=== PATIENT | male | born 1970 | race Hispanic/Latino ===

== ENCOUNTER 2020-03-14 08:37 | Inpatient (IN) | payer SELFPAY ==
[2020-03-14 09:30] LABS: #Lymphocytes 1.8 thou/uL (1.20-3.40); #Monocytes 0.9 thou/uL (0.11-0.59); #Neutrophils 6.3 thou/uL (1.40-6.50); %Basophils 0.4 % (0.0-1.0); %Eosinophils 0.3 % (0.0-10.0); %Lymphocytes 20.1 % (21.0-51.0); %Neutrophils 69.2 % (42.0-75.0); Hemoglobin 15.2 g/dL (14.0-18.0); Mean Corpuscular HGB CONC 33.5 g/dL (32.0-36.0); Mean Corpuscular Hemoglobin 30.4 pg (27.0-31.0); Mean Corpuscular Volume 90.9 fL (78.0-98.0); Mean Platelet Volume 9.1 fL (7.4-10.4); Platelet Count 329 thou/uL (130-400); RBC Distribution Width 11.4 % (11.5-14.5); Red Blood Cell (RBC) Count 4.99 mill/uL (4.70-6.10); White Blood Cell (WBC) Count 9.1 thou/uL (4.8-10.8)
[2020-03-14 09:51] LABS: ALT (SGPT) 20 U/L (8-55); AST (SGOT) 16 U/L (5-34); Albumin 4.6 g/dL (3.5-5.0); Alkaline Phosphatase 95 U/L (40-110); Anion Gap 16 mmol/L (10-20); BUN (Urea Nitrogen) 18 mg/dL (8.9-20.6); Bilirubin, Total 0.7 mg/dL (0.2-1.2); Calc. Creatinine Clearance 0 mL/min (70-130); Calcium 10.7 mg/dL (7.8-10.44); Carbon Dioxide 34 mmol/L (22-29); Chloride 85 mmol/L (98-107); Estimated GFR-MDRD 52; Globulin 3.4 g/dL (2.4-3.5); Potassium 3.8 mmol/L (3.5-5.1); Sodium 131 mmol/L (136-145)
[2020-03-14] MEDS ORDERED: Morphine 4 MG/ML VIAL ONE (09:55)
[2020-03-14] MEDS ORDERED: Ondansetron PF 4 MG/2 ML Vial ONE (09:55)
[2020-03-14] MEDS ORDERED: Piperacillin/Tazobactam 4.5 GM VIAL ONE (09:55)
[2020-03-14 09:59] LABS: Glucose 555 mg/dL (70-105)
[2020-03-14 10:32] LABS: Bilirubin Negative (Negative); Blood, Urine Negative (Negative); Clarity Clear (Clear); Glucose, Urine (Dipstick) Greater than 1000 mg/dL (Negative); Ketone, Urine 20 mg/dL (Negative); Leukocyte Negative Leu/uL (Negative); Nitrite Negative (Negative); Protein, Urine (Dipstick) Negative (Neg-Trace); Urobilinogen Normal mg/dL (Less than 2)
[2020-03-14 10:47] LABS: Base Excess-Venous 4.7 mmol/L (-2.0 to 3.0); Bicarbonate (HCO3v) 29.1 mmol/L (22.0-28.0); CO2 Tension (PvCO2) 41.5 mmHg (40.0-50.0); Calcium, Ionized 1.06 mmol/L (See Comments:); Chloride 94 mmol/L (98-107); Hemoglobin - Calc 14.5 g/dL (14.0-18.0); Potassium 3.4 mmol/L (3.5-5.1); Sodium 135 mmol/L (138-145); T. Carbon Dioxide 30.4 mmol/L (22.0-28.0); vO2 Saturation-calc 99.4 % (60.0-85.0)
--- NOTE | 2020-03-14 10:47 | RAD ---
EXAM: Single view of the chest HISTORY: Right-sided abdominal pain and vomiting. Dyspnea. COMPARISON: None FINDINGS: Single view of the chest shows a normal sized cardiomediastinal silhouette. There is no mirlande dence of consolidation, mass, or pleural effusion. The bones are unremarkable IMPRESSION: No evidence of acute cardiopulmonary disease
--- NOTE | 2020-03-14 10:55 | ULT ---
US Gallbladder RUQ: 03/14/2020 9:40 AM CLINICAL HISTORY: Abdominal pain. STUDY: Limited right upper quadrant ultrasound of abdomen. COMPARISON: None. FINDINGS: Liver: Size: Normal. Echogenicity: Normal. Contour: Smooth. Mass: None. Bile ducts: No intrahepatic or extrahepatic biliary dilatation. Common bile duct measures 7 mm. Gallbladder: Normal. Pancreas: Head, body, and tail appear normal. Right kidney: No pelvicalyceal dilatation. 1.7 cm right renal cyst. Right kidney measuring 10.1 cm in length. IMPRESSION: Right renal cyst
--- NOTE | 2020-03-14 12:02 | CT ---
CT ABDOMEN AND PELVIS WITH IV CONTRAST: HISTORY: Right-sided abdominal pain with nausea and vomiting. FINDINGS: The lung bases are clear. No calcified gallstones are seen. A few tiny low density lesions are seen i n the liver, too small to characterize. The spleen, pancreas, adrenal glands and left kidney are norm al. There is a 1.7 cm cortical cyst in the right kidney. No free air, free fluid or lymphadenopathy i s seen in the abdomen or pelvis. The small bowel loops are not abnormally dilated. A normal appearing appendix is noted. There is no evidence of aneurysmal dilatation of the abdominal aorta. There are d egenerative changes in the spine. The prostate is enlarged. There is mild colonic diverticulosis with out diverticulitis. A small hiatal hernia is present. IMPRESSION: No acute process. POS: MZA
[2020-03-14 12:22] LABS: Lactic Acid 1.4 mmol/L (0.5-2.2)
[2020-03-14] MEDS ORDERED: Insulin Regular 300 UNITS/3 ML VIAL IVP SCH (13:15)
[2020-03-14] MEDS ORDERED: Electrolyte Replacement Protoc 1 EACH EACH FS SCH ×2 (13:30→15:47)
[2020-03-14] MEDS ORDERED: Electrolyte Replacement Protocol FS PRN ×2 (13:30→16:00)
[2020-03-14] MEDS ORDERED: Iopamidol-370 76% 500 ML 1 ML ONE (13:35)
[2020-03-14] MEDS ORDERED: Dextrose 50% Abboject 50 ML SYRINGE SLOW IVP PRN (14:20)
[2020-03-14] MEDS ORDERED: HumaLOG 300 UNITS/3 ML VIAL SC PRN (14:20)
[2020-03-14] MEDS ORDERED: Dextrose 5% in Water 1,000 ML IV PRN (14:20)
[2020-03-14] MEDS ORDERED: Acetaminophen 650 MG Suppository PR PRN (14:26)
[2020-03-14] MEDS ORDERED: Acetaminophen 325 MG TAB PO PRN (14:26)
[2020-03-14] MEDS ORDERED: Ondansetron ODT 4 MG TAB PO PRN (14:26)
[2020-03-14] MEDS ORDERED: Senokot S 8.6-50 MG TAB PO PRN (14:26)
[2020-03-14] MEDS ORDERED: Calcium Carbonate 500 MG ChewTAB PO PRN (14:26)
[2020-03-14] MEDS ORDERED: Ondansetron PF 4 MG/2 ML Vial IVP PRN (14:26)
[2020-03-14 14:27] LABS: Anion Gap 13 mmol/L (10-20); BUN (Urea Nitrogen) 15 mg/dL (8.9-20.6); Calc. Creatinine Clearance 0 mL/min (70-130); Calcium 9.2 mg/dL (7.8-10.44); Carbon Dioxide 30 mmol/L (22-29); Chloride 96 mmol/L (98-107); Estimated GFR-MDRD 85; Glucose 354 mg/dL (70-105); Potassium 3.8 mmol/L (3.5-5.1); Sodium 135 mmol/L (136-145)
[2020-03-14] MEDS ORDERED: Potassium Chloride 40 MEQ in Sodium Chloride 0.9% 250 ML 250 ML IVPB SCH (15:15)
--- NOTE | 2020-03-14 15:24 | HP ---
PRIMARY CARE PHYSICIAN: None. CHIEF COMPLAINT: Abdominal pain. HISTORY OF PRESENT ILLNESS: The patient is a 49-year-old male with a past medical history significant for untreated type 2 diabetes, who presents to the ER for the above complaint. The patient reports having abdominal pain over the last week, which intensified last night. He reports that the abdominal pain was located in his right upper quadrant. He describes it as dull and aching in nature over the past week, then last night, worse in intensity with some associated nausea and vomiting. He denies any diarrhea. Denies any recent fever or chills. He does report some associated polyuria, polydipsia, and polyphagia. For these reasons, he came to the ER. In the ER, he was found to have a normal temperature, normal blood pressure , mildly tachycardic with a heart rate of 95, normal respirations, normal oxygen saturation with 10/10 pain. Right upper quadrant ultrasound was performed, which is negative for any acute process. CT of the abdomen was performed with no acute process. Glucose was 555. He had a gap of 16, lactic acid of 2.5, beta hydroxybutyrate of 0.75. The patient was given 2 L of normal saline and Zosyn. COVID test is negative. PAST MEDICAL HISTORY: Diabetes type 2, untreated. PAST SURGICAL HISTORY: None. SOCIAL HISTORY: The patient lives with his family in [place]. He does not work. He smokes about a quarter pack per day since he was a teenager. He drinks beer socially, approximately 6 beers per week. Denies any illicit drug use. FAMILY HISTORY: Noncontributory for diabetes. ALLERGIES: NO KNOWN DRUG ALLERGIES. HOME MEDICATIONS: None. REVIEW OF SYSTEMS: All review of systems are negative unless otherwise stated in the HPI. PHYSICAL EXAMINATION: VITAL SIGNS: Temperature 97.6, blood pressure 122/74, pulse 95, respirations 16 , saturation of oxygen is 99 on room air. No pain at this time. CONSTITUTIONAL: The patient is alert and oriented to person, place, and time. No acute distress. Nontoxic in appearance. HEAD: Atraumatic and normocephalic. EYES: Extraocular muscles intact. PERRLA. NECK: Full range of motion. No cervical spinous tenderness. No cervical adenopathy. No JVD. RESPIRATORY/CHEST: Respirations even and unlabored. Clear to auscultation. No rhonchi, wheezes, or rales. CARDIOVASCULAR: S1 and S2 appreciated. Regular rate and rhythm. No murmurs, rubs, or gallops. ABDOMEN: Abdomen is soft, nontender, nondistended. Active bowel sounds. No guarding. No rigidity. No rebound. Negative Rovsing sign. Negative Marcano sign. No abdominal bruit auscultated. BACK: Full range of motion. No central spinous tenderness. No CVA tenderness. EXTREMITIES: Upper extremities; full range of motion, normal strength, sensation intact. Palpable radial pulses. Lower extremities; full range of motion, normal strength, normal sensation. Palpable pedal pulses, no swelling. NEUROLOGIC: The patient is alert and oriented to person, place, and time. Follows commands. No focal motor deficits. Normal gait. PSYCHIATRIC: A and O x3. Normal affect. Denies any suicidal or homicidal ideation. LABS AND DIAGNOSTICS: Abdominal ultrasound negative for any acute abdominal process. CT of the abdomen and pelvis was negative for any acute process. Chest x-ray was negative for any acute process. Sodium 135, potassium 3.8, chloride 96, carbon dioxide 30, anion gap 13, BUN 15, creatinine 0.94, blood glucose 354. Lactic acid 2.5, repeat 1.4. Magnesium 1.8, calcium 10.7, total bilirubin 0.7, AST 16 , ALT 20, alkaline phosphatase 95, albumin 4.6. Initial troponin 0.026. BNP of 35.2. WBCs 9.1, hemoglobin 15.2, hematocrit 45.3, and platelets 329. VBG; pH 7.45, CO2 of 41.5, bicarb 29.1, pO2 of 152.5. UA was positive for glucose and ketones. Tox report had beta hydroxybutyrate of 0.75. [id number] negative. IMPRESSION AND PLAN: 1. Hyperosmolar hyperglycemic nonketotic syndrome, mild. The patient presents with worsening acute upper abdominal pain. CT and right upper quadrant ultrasound were negative for any acute process. UA was positive for glucose and ketones. Beta-hydroxybutyrate was 0.75. Initial blood sugar was 555, gap of 16, potassium 3.8. The patient was given 2 L of normal saline with improvement in symptoms. We will continue IV fluid resuscitation. We will change IV fluids to half-normal saline. We will give 40 mEq of potassium by IV. We will recheck electrolytes every 2 hours. We will leave the patient n.p.o. for now. We will check hemoglobin A1c. Blood cultures and urine cultures are pending. We will hold Zosyn for now. The patient denied any recent illness or sick contacts. Had no fevers or chills. We will educate on diabetes. We will consult dietitian. We will start long-acting insulin at night. We will add rapid acting with meals scheduled and will have mild sliding scale. We will check a fasting lipid. 2. Acute kidney injury. The patient presented with a creatinine of 1.43. We will continue IV fluid resuscitation. We will recheck level in the a.m. 3. Hyponatremia, mild. The patient presented with serum sodium of 131, corrected for elevated glucose was 138. We will continue IV fluid resuscitation. Recheck in the a.m. 4. Diabetes 2, uncontrolled. The patient reports not taking any medications for his diabetes. He does not have a PCP. Discussed in great detail with him signs and symptoms of elevated blood sugars. He agreed that he will follow up with an outpatient clinic. We will check hemoglobin A1c. We will add insulin long- acting and sliding scale. 5. Tobacco abuse. The patient reports smoking a quarter pack of cigarettes per day since he was a teenager. He is unwilling to quit at this time. He does not want any NRT therapy. We will educate on tobacco cessation. 6. SCDs for deep venous thrombosis prophylaxis. Protonix for gastrointestinal prophylaxis. The patient is a full code. 7. Discussed case with Dr. Farley. Job ID: [id number] MTDD
[2020-03-14 15:58] LABS: Hemoglobin A1c Greater than 14.0 % (4.0-6.0)
[2020-03-14] MEDS: HYDROcodone/Acetaminophen 5/325 mg Tablet PO PRN (16:23)
[2020-03-14] MEDS: Sodium Chloride 0.45% 1,000 ML IV SCH ×2 (16:24→23:08)
[2020-03-14 16:49] LABS: Anion Gap 14 mmol/L (10-20); BUN (Urea Nitrogen) 15 mg/dL (8.9-20.6); Calc. Creatinine Clearance 0 mL/min (70-130); Calcium 9.2 mg/dL (7.8-10.44); Carbon Dioxide 26 mmol/L (22-29); Chloride 98 mmol/L (98-107); Estimated GFR-MDRD 86; Glucose 329 mg/dL (70-105); Potassium 3.8 mmol/L (3.5-5.1); Sodium 134 mmol/L (136-145)
[2020-03-14 17:03] VITALS: BMI 19.3
[2020-03-14] MEDS ORDERED: Insulin Regular 300 UNITS/3 ML VIAL SC SCH (17:15)
[2020-03-14] MEDS: HumaLOG 300 UNITS/3 ML VIAL SC SCH (17:17)
[2020-03-14] MEDS: HumaLOG 300 UNITS/3 ML VIAL SC PRN (18:32)
[2020-03-14 19:07] LABS: Anion Gap 10 mmol/L (10-20); BUN (Urea Nitrogen) 17 mg/dL (8.9-20.6); Calc. Creatinine Clearance 69 mL/min (70-130); Carbon Dioxide 30 mmol/L (22-29); Chloride 101 mmol/L (98-107); Estimated GFR-MDRD 83; Glucose 240 mg/dL (70-105); Potassium 3.9 mmol/L (3.5-5.1); Sodium 137 mmol/L (136-145)
[2020-03-14] MEDS ORDERED: Insulin Glargine 15 UNITS in Pre-Filled Syringe 1 EACH SC SCH (21:00)
[2020-03-15] MEDS: Sodium Chloride 0.45% 1,000 ML IV SCH ×2 (04:25→08:58)
[2020-03-15 06:02] LABS: #Basophils 0.1 thou/uL (0.0-0.2); #Eosinphils 0.1 thou/uL (0.0-0.7); #Monocytes 0.9 thou/uL (0.11-0.59); #Neutrophils 5.9 thou/uL (1.40-6.50); %Basophils 0.7 % (0.0-1.0); %Eosinophils 1.2 % (0.0-10.0); %Monocytes 8.7 % (0.0-10.0); %Neutrophils 59.4 % (42.0-75.0); Hemoglobin 13.3 g/dL (14.0-18.0); Mean Corpuscular HGB CONC 33.2 g/dL (32.0-36.0); Mean Corpuscular Hemoglobin 30.7 pg (27.0-31.0); Mean Corpuscular Volume 92.3 fL (78.0-98.0); Mean Platelet Volume 8.7 fL (7.4-10.4); Platelet Count 296 thou/uL (130-400); RBC Distribution Width 11.4 % (11.5-14.5); Red Blood Cell (RBC) Count 4.34 mill/uL (4.70-6.10)
[2020-03-15] MEDS ORDERED: Magnesium 2 GM/50 ML 2 GM in Premix Bag 1 BAG IVPB SCH (06:15)
[2020-03-15 06:23] LABS: Anion Gap 10 mmol/L (10-20); BUN (Urea Nitrogen) 17 mg/dL (8.9-20.6); Calc. Creatinine Clearance 82 mL/min (70-130); Calcium 8.6 mg/dL (7.8-10.44); Carbon Dioxide 27 mmol/L (22-29); Cardiac Risk 5.5 (Less than 4.5); Chloride 102 mmol/L (98-107); Cholesterol 253 mg/dl (< 200 Desired); Estimated GFR-MDRD Greater than 90; Glucose 249 mg/dL (70-105); HDL Cholesterol 46 mg/dL (>60 Neg Risk); LDL Cholesterol, Calculated 171 mg/dL; Potassium 4.1 mmol/L (3.5-5.1); Sodium 135 mmol/L (136-145); Triglycerides 181 mg/dL (Less than 150)
[2020-03-15] MEDS: HumaLOG 300 UNITS/3 ML VIAL SC PRN (06:35)
[2020-03-15] MEDS: HumaLOG 300 UNITS/3 ML VIAL SC SCH (07:42)
[2020-03-15] MEDS: HYDROcodone/Acetaminophen 5/325 mg Tablet PO PRN (07:45)
[2020-03-15] MEDS ORDERED: Pantoprazole 40 MG VIAL IVP SCH (09:00)
[2020-03-15] MEDS ORDERED: HumaLOG 300 UNITS/3 ML VIAL SC SCH (09:59)
[2020-03-15] MEDS ORDERED: HumuLIN 70/30 (300 UNITS/3 ML VIAL) SC SCH (17:00)
[2020-03-15 17:10] VITALS: BP 110/69; TEMP 97.9
[2020-03-15] MEDS ORDERED: Insulin Glargine 20 UNITS in Pre-Filled Syringe 1 EACH SC SCH (21:00)
[2020-03-15] MEDS ORDERED: Atorvastatin Calcium 40 MG TAB PO SCH (21:00)
--- NOTE | 2020-03-16 10:06 | DIS ---
DATE OF ADMISSION: 03/14/2020 DATE OF DISCHARGE: 03/15/2020 HOSPITAL COURSE: Mr. King is a 49-year-old male with medical history of poorly controlled diabetes, who presents with acute nausea, vomiting, and abdominal pain. He was diagnosed with HHS. The patient was treated with an insulin regimen and his blood glucose was brought down. On the day of discharge, his blood glucose was in 250s. The patient's abdominal pain resolved. He was hemodynamically stable and had no complaints. Seeing the patient had no insurance, he was prescribed 70/30 mixture of 20 units b.i.d., atorvastatin based on ASVCD risk of 20%, and blood glucose kit. Prior to discharge, he was educated regarding diabetes management, insulin injections, and blood glucose measurements including logging of blood glucose measurements in order to follow up with his primary care physician. PHYSICAL EXAMINATION: VITAL SIGNS: Blood pressure 125/78, pulse 63, respiratory rate 18, oxygen saturation 99% on room air, and temperature 98.2 Fahrenheit. GENERAL APPEARANCE: Lying comfortably in bed, alert. HEENT: Normocephalic, atraumatic. EOMI. PERRL. CARDIAC: Regular rate and rhythm. No murmurs, gallops, or rubs. LUNGS: Clear to auscultation bilaterally. No wheezing, rales, or rhonchi. ABDOMEN: Soft, nontender, and nondistended. Normal bowel sounds. EXTREMITIES: No edema. PSYCHIATRIC: Proper mood and affect. Alert and oriented x3. MEDICATION LIST: The patient was nonadherent and had no previous medication use. New medications: 1. Humalog 70/30 20 units with breakfast and dinner. 2. Atorvastatin 40 mg p.o. at bedtime. Blood glucose kit for measurement before breakfast and before dinner. Job ID: [id number]
--- NOTE | 2020-03-16 13:40 | PQF ---
CLINICAL DOCUMENTATION CLARIFICATION FORM: Dear : Jose R Farley Date / Time: Please exercise your independent, professional judgment in responding to the clarification form. Clinical indicators are provided on the bottom of this form for your review Please check appropriate box(es) to clarify if the following diagnosis has been ruled in our ruled out: SEPSIS [ ] Ruled in diagnosis [ ] Continue to treat [ ] Resolved [ ] Ruled out diagnosis [ ] Improving [ ] Cannot rule out diagnosis [ ] Other diagnosis [ x ] Unable to determine In addition, please specify: Present on Admission (POA): [ x ] Yes [ ] No [ ] Unable to determine To be completed by CDI/Coding staff for physician review: Present Clinical Indicators - Signs / Symptoms / Labs Results and Location in Medical Record [ x ] ED final diagnosis: Sepsis. Lactate elevated, sepsis alert activated ED Provider Report 03/14 [ x ] Lactic acid is 2.5 on 03/14 Laboratory [ x ] Mildly tachycardic with a heart rate of 95 H&P Present Risk Factors Results and Location in Medical Record [ x ] Acute kidney injury, diabetes mellitus H&P Present Treatments Results and Location in Medical Record [ x ] Zosyn 4.5 g 03/14 Medications [ x ] IV fluids 03/14-03/15 Medications CDS/Welding Machine [employer] Friction Signature: SJ1 Phone #: Date/Time: 03/16/2020 This is a permanent part of the Medical Record [facility]
== END 2020-03-15 17:41 | disposition home or self-care (01) | DRG 637 ==
LOC: ERS 08:37 → T4-A 15:38
PROVIDERS: ADMIT Internal Medicine; ATTEND Internal Medicine
DX: E11.00 Type 2 diabetes mellitus with hyperosmolarity without nonketotic hyperglycemic-hyperosmolar coma (NKHHC) (principal); A41.9 Sepsis, unspecified organism; N17.9 Acute kidney failure, unspecified; E87.1 Hypo-osmolality and hyponatremia; F17.210 Nicotine dependence, cigarettes, uncomplicated; Z71.6 Tobacco abuse counseling
CPT/HCPCS: 36415; 36416; 71045; 74177; 76705; 80048; 80053; 80061; 81003; 82010; 82330; 82803; 83036; 83605; 83735; 83880; 84484; 85025; 87040; 87086; 93005; 94760; 96361; 96365; 96374; 96375; C9113; J1815; J2270; J2405; J2543; J3475; J3480; J7050; Q0162; Q9967; U0002

== ENCOUNTER 2022-05-22 08:23 | Inpatient (IN) | payer SELFPAY ==
[2022-05-22 09:46] LABS: #Eosinphils 0.3 thou/uL (0.0-0.7); #Lymphocytes 1.9 thou/uL (1.20-3.40); #Monocytes 0.8 thou/uL (0.11-0.59); #Neutrophils 6.1 thou/uL (1.40-6.50); %Basophils 0.5 % (0.0-1.0); %Eosinophils 2.8 % (0.0-10.0); %Monocytes 8.8 % (0.0-10.0); %Neutrophils 66.9 % (42.0-75.0); Mean Corpuscular HGB CONC 33.8 g/dL (32.0-36.0); Mean Corpuscular Hemoglobin 30.1 pg (27.0-31.0); Mean Corpuscular Volume 88.9 fL (78.0-98.0); Mean Platelet Volume 8.2 fL (7.4-10.4); Platelet Count 390 thou/uL (130-400); RBC Distribution Width 10.5 % (11.5-14.5); Red Blood Cell (RBC) Count 3.98 mill/uL (4.70-6.10); White Blood Cell (WBC) Count 9.2 thou/uL (4.8-10.8)
[2022-05-22 10:12] LABS: ALT (SGPT) 12 U/L (8-55); AST (SGOT) 10 U/L (5-34); Albumin 3.6 g/dL (3.5-5.0); Alkaline Phosphatase 103 U/L (40-110); Anion Gap 11 mmol/L (10-20); BUN (Urea Nitrogen) 17 mg/dL (8.4-25.7); Bilirubin, Total 0.7 mg/dL (0.2-1.2); Calc. Creatinine Clearance 0 mL/min (70-130); Calcium 9.2 mg/dL (7.8-10.44); Carbon Dioxide 29 mmol/L (22-29); Chloride 94 mmol/L (98-107); Estimated GFR 90; Globulin 3.8 g/dL (2.4-3.5); Glucose 386 mg/dL (70-105); Potassium 4.5 mmol/L (3.5-5.1); Protein, Total 7.4 g/dL (6.0-8.3); Sodium 129 mmol/L (136-145)
[2022-05-22] MEDS ORDERED: Cefepime 2 GM VIAL ONE (10:29)
[2022-05-22] MEDS ORDERED: Vancomycin 1 GM/200 ML BAG ONE (11:21)
[2022-05-22] MEDS ORDERED: Acetaminophen 325 MG TAB PO PRN (11:58)
[2022-05-22] MEDS ORDERED: Dextrose 50% Abboject 50 ML SYRINGE SLOW IVP PRN (12:03)
[2022-05-22] MEDS ORDERED: Dextrose 5% in Water 1,000 ML IV PRN (12:04)
[2022-05-22] MEDS ORDERED: Ondansetron ODT 4 MG TAB PO PRN (12:18)
[2022-05-22] MEDS ORDERED: Ondansetron PF 4 MG/2 ML Vial IVP PRN (12:18)
[2022-05-22] MEDS: Sodium Chloride 0.9% 1,000 ML IV SCH ×2 (12:45→21:02)
[2022-05-22] MEDS: Insulin Regular 300 UNITS/3 ML VIAL SC PRN ×3 (13:44→20:14)
[2022-05-22] MEDS ORDERED: Piperacillin/Tazobactam 3.375 GM in Sodium Chloride 0.9% 100 ML IVPB SCH ×2 (14:00→18:00)
[2022-05-22 14:34] VITALS: BMI 20.6
[2022-05-22] MEDS: Piperacillin/Tazobactam 3.375 GM in Sodium Chloride 0.9% 100 ML IVPB SCH (21:02)
[2022-05-23] MEDS: Vancomycin HCl 750 MG in Sodium Chloride 0.9% 250 ML 250 ML IVPB SCH ×2 (01:07→12:22)
[2022-05-23] MEDS: Insulin Regular 300 UNITS/3 ML VIAL SC PRN ×2 (04:53→21:35)
[2022-05-23] MEDS: Piperacillin/Tazobactam 3.375 GM in Sodium Chloride 0.9% 100 ML IVPB SCH ×3 (04:53→21:34)
[2022-05-23 06:35] LABS: #Basophils 0.1 thou/uL (0.0-0.2); #Eosinphils 0.5 thou/uL (0.0-0.7); #Lymphocytes 2.4 thou/uL (1.20-3.40); #Monocytes 0.9 thou/uL (0.11-0.59); #Neutrophils 4.9 thou/uL (1.40-6.50); %Eosinophils 5.5 % (0.0-10.0); %Lymphocytes 27.4 % (21.0-51.0); %Neutrophils 56.2 % (42.0-75.0); Hemoglobin 12.1 g/dL (14.0-18.0); Mean Corpuscular HGB CONC 33.3 g/dL (32.0-36.0); Mean Platelet Volume 8.2 fL (7.4-10.4); Platelet Count 395 thou/uL (130-400); RBC Distribution Width 10.7 % (11.5-14.5); Red Blood Cell (RBC) Count 4.05 mill/uL (4.70-6.10); White Blood Cell (WBC) Count 8.6 thou/uL (4.8-10.8)
[2022-05-23 06:52] LABS: Anion Gap 7 mmol/L (10-20); BUN (Urea Nitrogen) 13 mg/dL (8.4-25.7); Calc. Creatinine Clearance 77 mL/min (70-130); Calcium 9.1 mg/dL (7.8-10.44); Carbon Dioxide 28 mmol/L (22-29); Chloride 104 mmol/L (98-107); Estimated GFR 103; Glucose 282 mg/dL (70-105); Sodium 134 mmol/L (136-145)
[2022-05-23] MEDS: Sodium Chloride 0.9% 1,000 ML IV SCH (07:29)
[2022-05-23] MEDS ORDERED: Sodium Chloride 0.9% 100 ML ONE (13:30)
[2022-05-23] MEDS ORDERED: Piperacillin/Tazobactam 3.375 GM VIAL ONE (13:30)
[2022-05-23] MEDS ORDERED: fentaNYL Citrate/PF 100 MCG/2 ML SYRINGE ONE (15:02)
[2022-05-23] MEDS ORDERED: Dexamethasone 20 MG/5 ML VIAL ONE (15:29)
[2022-05-23] MEDS ORDERED: Lidocaine 1% MPF 2 ML VIAL ONE (15:29)
[2022-05-23] MEDS ORDERED: PROPOFOL 200 MG/20 ML VIAL ONE (15:29)
[2022-05-23] MEDS ORDERED: Ondansetron PF 4 MG/2 ML Vial ONE (15:29)
[2022-05-23] MEDS ORDERED: Phenylephrine 10 MG/ML VIAL ONE (15:29)
[2022-05-23] MEDS ORDERED: Acetaminophen 500 MG TAB PO PRN (15:56)
[2022-05-23] MEDS ORDERED: Ibuprofen 600 MG TAB PO PRN (15:56)
[2022-05-23] MEDS ORDERED: Acetaminophen 500 MG TAB PO SCH (16:00)
[2022-05-23] MEDS: traMADol HCl 50 MG TAB PO PRN (16:58)
[2022-05-23] MEDS ORDERED: Atorvastatin Calcium 40 MG TAB PO SCH (21:00)
[2022-05-23 21:18] LABS: Glucose 696 mg/dL (70-105)
[2022-05-23] MEDS: Atorvastatin Calcium 40 MG TAB PO SCH (21:34)
[2022-05-23 22:27] LABS: Vancomycin, Trough 8.7 ug/mL
[2022-05-23] MEDS: VANCOMYCIN 1.25 GM/250 ML BAG 1.25 GM in Premix Bag 1 BAG IVPB SCH (23:18)
[2022-05-24] MEDS: Piperacillin/Tazobactam 3.375 GM in Sodium Chloride 0.9% 100 ML IVPB SCH ×3 (06:06→20:49)
[2022-05-24] MEDS: Insulin Regular 300 UNITS/3 ML VIAL SC PRN ×2 (06:08→20:49)
[2022-05-24 06:24] LABS: Anion Gap 10 mmol/L (10-20); BUN (Urea Nitrogen) 16 mg/dL (8.4-25.7); Calc. Creatinine Clearance 65 mL/min (70-130); Carbon Dioxide 27 mmol/L (22-29); Chloride 103 mmol/L (98-107); Estimated GFR 85; Glucose 403 mg/dL (70-105); Hemoglobin A1c Greater than 14.0 % (4.0-6.0); Potassium 4.8 mmol/L (3.5-5.1); Sodium 135 mmol/L (136-145)
[2022-05-24 06:33] LABS: Hemoglobin 11.2 g/dL (14.0-18.0); Mean Corpuscular HGB CONC 32.9 g/dL (32.0-36.0); Mean Corpuscular Volume 91.1 fL (78.0-98.0); Mean Platelet Volume 8.1 fL (7.4-10.4); Platelet Count 429 thou/uL (130-400); RBC Distribution Width 10.8 % (11.5-14.5); Red Blood Cell (RBC) Count 3.75 mill/uL (4.70-6.10); White Blood Cell (WBC) Count 9.1 thou/uL (4.8-10.8)
[2022-05-24] MEDS: HumuLIN 70/30 (300 UNITS/3 ML VIAL) SC SCH ×2 (08:58→20:48)
[2022-05-24] MEDS: VANCOMYCIN 1.25 GM/250 ML BAG 1.25 GM in Premix Bag 1 BAG IVPB SCH ×2 (12:03→20:49)
[2022-05-24] MEDS: Atorvastatin Calcium 40 MG TAB PO SCH (20:47)
[2022-05-25] MEDS: Piperacillin/Tazobactam 3.375 GM in Sodium Chloride 0.9% 100 ML IVPB SCH (05:47)
[2022-05-25] MEDS: HumuLIN 70/30 (300 UNITS/3 ML VIAL) SC SCH (08:12)
[2022-05-25] MEDS ORDERED: Amoxicillin/Potassium Clav 500 MG TAB PO SCH (09:00)
[2022-05-25] MEDS: traMADol HCl 50 MG TAB PO PRN (09:52)
[2022-05-25 11:38] VITALS: BP 131/72; TEMP 97.6
== END 2022-05-25 15:38 | disposition home or self-care (01) | DRG 617 ==
LOC: ERS 08:23 → T4-B 12:08
PROVIDERS: ADMIT Internal Medicine; ATTEND Internal Medicine
PROC: 0Y6Q0Z1 Detachment at Left 1st Toe, High, Open Approach (ICD-10-PCS; principal; 2022-05-23)
DX: E11.621 Type 2 diabetes mellitus with foot ulcer (principal); E87.1 Hypo-osmolality and hyponatremia; Z20.822 Contact with and (suspected) exposure to COVID-19; F17.210 Nicotine dependence, cigarettes, uncomplicated; L97.529 Non-pressure chronic ulcer of other part of left foot with unspecified severity; E11.65 Type 2 diabetes mellitus with hyperglycemia; E78.5 Hyperlipidemia, unspecified; E11.51 Type 2 diabetes mellitus with diabetic peripheral angiopathy without gangrene; Z79.899 Other long term (current) drug therapy; Z79.84 Long term (current) use of oral hypoglycemic drugs
CPT/HCPCS: 36415; 36416; 80048; 80053; 80202; 83036; 83605; 85025; 85027; 85652; 86140; 87040; 87070; 87076; 87077; 87186; 87205; 88305; 88311; 97139; J0692; J1100; J1815; J2370; J2405; J2543; J2704; J3370; J3490; J7050; U0003; U0005

== ENCOUNTER 2024-02-27 13:51 | Emergency (ER) | payer OTHER ==
[2024-02-27 14:58] LABS: #Basophils 0.07 10x3/uL (0.0-0.2); %Basophils 1.2 % (0.0-1.0); %Eosinophils 4.8 % (0.0-10.0); %Lymphocytes 31.6 % (21.0-51.0); %Monocytes 10.7 % (0.0-10.0); %Neutrophils 51.4 % (42.0-75.0); Hematocrit 34.9 % (42.0-52.0); Hemoglobin 11.8 g/dL (14.0-18.0); Mean Corpuscular HGB CONC 33.8 g/dL (32.0-36.0); Mean Corpuscular Volume 82.9 fL (78.0-98.0); Mean Platelet Volume 11.1 fL (7.4-10.4); Platelet Count 275 10x3/uL (130-400); RBC Distribution Width 12.8 % (11.5-14.5); Red Blood Cell (RBC) Count 4.21 mill/uL (4.70-6.10)
[2024-02-27 15:25] LABS: ALT (SGPT) 16 U/L (8-55); AST (SGOT) 15 U/L (5-34); Albumin 3.8 g/dL (3.5-5.0); Alkaline Phosphatase 77 U/L (40-110); Anion Gap 13 mmol/L (10-20); BUN (Urea Nitrogen) 75 mg/dL (8.4-25.7); Bilirubin, Total 0.2 mg/dL (0.2-1.2); Calc. Creatinine Clearance 0 mL/min (70-130); Calcium 8.9 mg/dL (7.8-10.44); Carbon Dioxide 26 mmol/L (22-29); Chloride 94 mmol/L (98-107); Estimated GFR 42; Globulin 3.2 g/dL (2.4-3.5); Glucose 379 mg/dL (70-105); Potassium 4.7 mmol/L (3.5-5.1); Sodium 128 mmol/L (136-145)
[2024-02-27 16:00] LABS: Bacteria/HPF None Seen HPF (None Seen); Bilirubin Negative (Negative); Blood, Urine Negative (Negative); CAUTI Indications for Culture Dysuria,urgency,freq; Clarity Clear (Clear); Glucose, Urine (Dipstick) 500 mg/dL (Negative); Ketone, Urine Negative (Negative); Leukocyte Negative Leu/uL (Negative); Nitrite Negative (Negative); Protein, Urine (Dipstick) Negative (Neg-Trace); RBC/HPF None Seen HPF (0-3); Specific Gravity, Urine 1.013 (1.002-1.036); Squamous Epithelial None Seen HPF (0-3); Urobilinogen Normal mg/dL (Less than 2); WBC/HPF 0-3 HPF (0-3)
[2024-02-27 16:02] LABS: Urine Culture Reflex No No
[2024-02-27] MEDS ORDERED: Insulin Regular, Human 100 UNIT/ML 10 ML VIAL ONE (16:21)
== END 2024-02-27 17:45 | disposition home or self-care (01) ==
LOC: ERS 13:51
DX: E86.0 Dehydration (principal); E11.65 Type 2 diabetes mellitus with hyperglycemia; Z79.84 Long term (current) use of oral hypoglycemic drugs
CPT/HCPCS: 36415; 71045; 80053; 81001; 82550; 85025; 93005; 96374; J1815